=== PATIENT | male | born 1960 | race Caucasian/White ===

== ENCOUNTER 2023-11-28 19:11 | Inpatient (IN) | payer MEDICAID ==
[~2023-11-28] VITALS: Ht 162.6 cm; Wt 72.2 kg
[2023-11-28 19:50] LABS: BASOPHILS % (AUTO) 0.4 % (0-1); EOSINOPHILS # (AUTO) 0.1 X10'3 (0-0.9); EOSINOPHILS % (AUTO) 1.1 % (0-6); HEMATOCRIT 31.5 % (42.0-52.0); HEMOGLOBIN 9.8 g/dl (14.0-17.9); LYMPHOCYTES # (AUTO) 0.9 X10'3 (1.1-4.8); LYMPHOCYTES % (AUTO) 10.5 % (21-51); MEAN CORPUSCULAR HEMOGLOBIN 26.5 PG (27.0-31.0); MEAN CORPUSCULAR HGB CONC 31.3 g/dL (33.0-36.5); MEAN CORPUSCULAR VOLUME 84.9 FL (78-98); MEAN PLATELET VOLUME 8.1 FL (7.4-10.4); MONOCYTES # (AUTO) 0.6 X10'3 (0-0.9); MONOCYTES % (AUTO) 6.6 % (2-12); NEUTROPHILS # (AUTO) 6.8 X10'3 (1.8-7.7); NEUTROPHILS % (AUTO) 81.4 % (42-75); PLATELET COUNT 176 X10'3 (140-440); RED BLOOD COUNT 3.71 X10'6 (4.70-6.10); RED CELL DISTRIBUTION WIDTH 17.9 % (11.5-14.5); WHITE BLOOD COUNT 8.4 X10'3 (4.5-11.0)
[2023-11-28 20:05] LABS: ALANINE AMINOTRANSFERASE 44 U/L (12-78); ALBUMIN 2.8 G/DL (3.4-5.0); ALBUMIN/GLOBULIN RATIO 0.9 (1.1-1.5); ALKALINE PHOSPHATASE 43 IU/L (46-116); ANION GAP 6 (8-16); ASPARTATE AMINO TRANSFERASE 53 U/L (10-37); BILIRUBIN,TOTAL 0.8 MG/DL (0.1-1.0); BLOOD UREA NITROGEN 33 MG/DL (7-18); BUN/CREATININE RATIO 38.4 (10.0-20.0); CALCIUM 8.1 MG/DL (8.5-10.1); CHLORIDE 104 MMOL/L (99-107); CREATININE 0.86 MG/DL (0.60-1.10); GLUCOSE 91 MG/DL (70-104); POTASSIUM 3.8 MMOL/L (3.5-5.1); SODIUM 145 MMOL/L (135-145); TOTAL CARBON DIOXIDE 35.2 MMOL/L (24-32); eCRCL 74 ML/MIN; eGFR 90 ML/MIN
[2023-11-28 20:13] LABS: PRO BRAIN NATRIURETIC PEPTIDE 954 PG/ML (0-125)
[2023-11-28] MEDS: albuterol 2.5 MG/3 ML nebule NEB ONE (20:15)
[2023-11-28 20:19] VITALS: PULSE 60; PULSE 64; RESP 14; RESP 15; O2SAT 88; O2SAT 99
[2023-11-28] MEDS: furosemide 10 MG/1 ML 10ml inj IV ONE (20:34)
[2023-11-28] MEDS ORDERED: ondansetron/PF 4mg/2ml inj IV PRN (20:50)
[2023-11-28] MEDS ORDERED: potassium Cl 20 mEq SR tablet PO PRN ×2 (20:50)
[2023-11-28] MEDS ORDERED: magnesium hydroxide 30ml (MOM) UD suspension PO PRN (20:50)
[2023-11-28] MEDS: PERFLUTREN PROTEIN-A MICROSPHR (Optison) 0.22 MG/ML 3ML VIAL IV ONE (20:50)
[2023-11-28] MEDS ORDERED: mag hydrox/Alum hydrox/simeth 30ml oral suspension PO PRN (20:50)
[2023-11-28] MEDS ORDERED: morphine 2 MG/ML inj. syringe IV PRN ×2 (20:50)
[2023-11-28] MEDS ORDERED: magnesium Cl slow-release 64mg tablet PO PRN (20:50)
[2023-11-28] MEDS ORDERED: acetaminophen 325mg tablet PO PRN (20:50)
[2023-11-28] MEDS ORDERED: magnesium sulf-water 2g/50mL 50 ML IV PRN (20:50)
[2023-11-28] MEDS ORDERED: potassium Cl 40MEQ/1/2NS 520ml 520 ML IV PRN (20:50)
[2023-11-28] MEDS ORDERED: magnesium sulf-water 4G/100mL 100 ML IV PRN (20:50)
[2023-11-28 20:56] LABS: BILIRUBIN,URINE SMALL (Neg); CLARITY,URINE CLEAR (Clear); COLOR,URINE AMBER (Yellow); GLUCOSE, URINE 250 mg/dl (Neg); KETONES,URINE 15 mg/dl (Neg); LEUKOCYTE ESTERASE ,URINE NEGATIVE (Neg); NITRITES, URINE NEGATIVE (Neg); OCCULT BLOOD,URINE NEGATIVE (Neg); PH,URINE 6.5 (4.8-8.0); PROTEIN,URINE NEGATIVE (Neg)
[2023-11-28] MEDS: heparin 10,000 units/1 ML INJ IV ONE (20:58)
[2023-11-28] MEDS: aspirin 325mg tablet, delayed-release (Ecotrin) PO ONE (20:58)
[2023-11-28 21:03] LABS: UA COLLECTION TYPE URINAL
[2023-11-28 21:06] LABS: URINE AMPHETAMINE SCREEN NEGATIVE (Neg); URINE BARBITUATE SCREEN NEGATIVE (Neg); URINE BENZODIAZEPINES SCREEN POSITIVE (Neg); URINE CANNABINOID SCREEN POSITIVE (Neg); URINE COCAINE SCREEN NEGATIVE (Neg); URINE METHADONE SCREEN NEGATIVE (Neg); URINE OPIATE SCREEN NEGATIVE (Neg); URINE PHENCYCLIDINE SCREEN NEGATIVE (Neg)
[2023-11-28] MEDS: methylPREDNISolone sod succ 125mg/2ml vial IV ONE (21:15)
[2023-11-28] MEDS: CefTRIAXone/D5W-Rocephin 1gm 50 ML IV ONE (21:16)
[2023-11-28] MEDS ORDERED: heparin 10,000 units/1 ML INJ IV ONE (21:25)
[2023-11-28 21:57] LABS: APTT 23 SECONDS (22-32); INR 1.1 INR; PROTHROMBIN TIME 11.2 SECONDS (9.0-12.0)
[2023-11-28] MEDS: aspirin 325mg tablet PO ONE (22:28)
[2023-11-28] MEDS ORDERED: LORazepam 1 MG tablet PO PRN (22:45)
[2023-11-28] MEDS ORDERED: LORazepam 2 mg/ml vial IV PRN (22:45)
[2023-11-28] MEDS ORDERED: haloperidol 5mg tablet PO PRN (22:45)
[2023-11-28] MEDS ORDERED: haloperidol lactate 5mg/ml inj IM PRN (22:45)
[2023-11-28] MEDS: heparin 25,000 UNIT/250ml bag 250 ML IV PRN (22:46)
[2023-11-28] MEDS: clopidogrel 300mg tablet PO ONE (22:49)
[2023-11-28] MEDS: normal saline 1000ml 1,000 ML IV SCH (22:50)
[2023-11-28] MEDS: COMMUNICATION ORDER 1 EA MISC MC ONE (22:58)
[2023-11-29] VITALS (10 sets, daily range): BP systolic 94–118; BP diastolic 48–58; PULSE 46–65; RESP 12–20; TEMP 97.5–98.7; O2SAT 18–96
[2023-11-29] MEDS: MESSAGE TO NURSING IV ONE ×4 (00:03→20:39)
[2023-11-29] MEDS ORDERED: NO HOME MEDS (00:58)
[2023-11-29 06:32] LABS: APTT 43 SECONDS (22-32); INR 1.1 INR; PROTHROMBIN TIME 11.1 SECONDS (9.0-12.0)
[2023-11-29] MEDS: K and/or MAG REPLACEMENT MC SCH (08:00)
[2023-11-29] MEDS: heparin 10,000 units/1 ML INJ IV PRN (08:14)
[2023-11-29] MEDS: aspirin 81mg, enteric-coated 1 TAB TABLET.DR PO SCH (08:18)
[2023-11-29] MEDS: docusate sod 100mg capsule PO SCH (08:18)
[2023-11-29] MEDS: clopidogrel 75mg tablet PO SCH (08:19)
[2023-11-29] MEDS ORDERED: FLU VACC TS2024-25(6MOS UP)/PF 45 MCG/0.5 ML SYRINGE IMVAC ONE (16:45)
[2023-11-29] MEDS: oxyCODONE/APAP 5-325mg tablet PO PRN (16:48)
[2023-11-29] MEDS: ipratropium/albuterol 3ml nebule NEB PRN (19:46)
[2023-11-30] VITALS (12 sets, daily range): BP systolic 98–111; BP diastolic 36–63; PULSE 18–58; RESP 14–22; TEMP 97.3–98.1; O2SAT 92–98
[2023-11-30 03:03] LABS: BASOPHILS % (AUTO) 0.3 % (0-1); EOSINOPHILS % (AUTO) 0.3 % (0-6); HEMATOCRIT 30.2 % (42.0-52.0); HEMOGLOBIN 9.3 g/dl (14.0-17.9); LYMPHOCYTES % (AUTO) 13.2 % (21-51); MEAN CORPUSCULAR HEMOGLOBIN 26.7 PG (27.0-31.0); MEAN CORPUSCULAR HGB CONC 30.9 g/dL (33.0-36.5); MEAN CORPUSCULAR VOLUME 86.3 FL (78-98); MEAN PLATELET VOLUME 8.9 FL (7.4-10.4); MONOCYTES # (AUTO) 0.6 X10'3 (0-0.9); MONOCYTES % (AUTO) 7.9 % (2-12); NEUTROPHILS # (AUTO) 5.7 X10'3 (1.8-7.7); NEUTROPHILS % (AUTO) 78.3 % (42-75); PLATELET COUNT 148 X10'3 (140-440); RED BLOOD COUNT 3.49 X10'6 (4.70-6.10); RED CELL DISTRIBUTION WIDTH 17.7 % (11.5-14.5); WHITE BLOOD COUNT 7.3 X10'3 (4.5-11.0)
[2023-11-30 03:14] LABS: INR 1.1 INR; PROTHROMBIN TIME 11.2 SECONDS (9.0-12.0)
[2023-11-30 03:16] LABS: ALBUMIN 2.7 G/DL (3.4-5.0); AMYLASE 62 U/L (25-115); ANION GAP 1 (8-16); BLOOD UREA NITROGEN 30 MG/DL (7-18); CALCIUM 8.2 MG/DL (8.5-10.1); CHLORIDE 102 MMOL/L (99-107); CREATININE 0.79 MG/DL (0.60-1.10); GLUCOSE 110 MG/DL (70-104); LIPASE 15 U/L (16-77); PHOSPHORUS 2.4 MG/DL (2.3-4.5); POTASSIUM 4.1 MMOL/L (3.5-5.1); SODIUM 139 MMOL/L (135-145); TOTAL CARBON DIOXIDE 35.6 MMOL/L (24-32); eCRCL 80 ML/MIN; eGFR > 90 ML/MIN
[2023-11-30] MEDS: MESSAGE TO NURSING IV ONE ×4 (03:30→23:44)
[2023-12-01] VITALS (12 sets, daily range): BP systolic 108–136; BP diastolic 48–62; PULSE 48–60; RESP 16–21; TEMP 97.5–98.4; O2SAT 93–98
[2023-12-01 06:54] LABS: BASOPHILS % (AUTO) 0.1 % (0-1); EOSINOPHILS # (AUTO) 0.1 X10'3 (0-0.9); EOSINOPHILS % (AUTO) 1.3 % (0-6); HEMATOCRIT 33.6 % (42.0-52.0); HEMOGLOBIN 10.1 g/dl (14.0-17.9); LYMPHOCYTES # (AUTO) 1.2 X10'3 (1.1-4.8); LYMPHOCYTES % (AUTO) 17.9 % (21-51); MEAN CORPUSCULAR HEMOGLOBIN 26.4 PG (27.0-31.0); MEAN CORPUSCULAR HGB CONC 30.1 g/dL (33.0-36.5); MEAN CORPUSCULAR VOLUME 87.8 FL (78-98); MEAN PLATELET VOLUME 9.1 FL (7.4-10.4); MONOCYTES # (AUTO) 0.7 X10'3 (0-0.9); MONOCYTES % (AUTO) 10.2 % (2-12); NEUTROPHILS # (AUTO) 4.6 X10'3 (1.8-7.7); NEUTROPHILS % (AUTO) 70.5 % (42-75); PLATELET COUNT 159 X10'3 (140-440); RED BLOOD COUNT 3.83 X10'6 (4.70-6.10); RED CELL DISTRIBUTION WIDTH 18.1 % (11.5-14.5); WHITE BLOOD COUNT 6.5 X10'3 (4.5-11.0)
[2023-12-01 07:05] LABS: INR 1.1 INR; PROTHROMBIN TIME 11.2 SECONDS (9.0-12.0)
[2023-12-01 07:30] LABS: ALBUMIN 2.8 G/DL (3.4-5.0); AMYLASE 65 U/L (25-115); ANION GAP 4 (8-16); BLOOD UREA NITROGEN 17 MG/DL (7-18); BUN/CREATININE RATIO 22.1 (10.0-20.0); CALCIUM 7.8 MG/DL (8.5-10.1); CHLORIDE 104 MMOL/L (99-107); CREATININE 0.77 MG/DL (0.60-1.10); GLUCOSE 81 MG/DL (70-104); LIPASE 18 U/L (16-77); PHOSPHORUS 2.2 MG/DL (2.3-4.5); POTASSIUM 4.5 MMOL/L (3.5-5.1); SODIUM 140 MMOL/L (135-145); TOTAL CARBON DIOXIDE 31.7 MMOL/L (24-32); eCRCL 82 ML/MIN; eGFR > 90 ML/MIN
[2023-12-01 07:45] LABS: ANISOCYTOSIS 2+; PLATELET ESTIMATE NORMAL
[2023-12-01 07:46] LABS: ELLIPTOCYTES FEW; HYPOCHROMASIA 1+
[2023-12-01] MEDS: MESSAGE TO NURSING IV ONE (08:30)
[2023-12-01 13:33] LABS: D-DIMER 0.25 MG/L FEU (0-0.50)
[2023-12-01] MEDS ORDERED: ASPI-1265 PO (14:50)
[2023-12-01] MEDS ORDERED: ATOR40TA72 PO (14:50)
[2023-12-01] MEDS ORDERED: FURO20TA4 PO (15:32)
[2023-12-01] MEDS ORDERED: FLUC200T12 PO (15:32)
[2023-12-01] MEDS ORDERED: ALBU8HFA INH (15:32)
[2023-12-01] MEDS ORDERED: EMPA10TA PO (15:32)
[2023-12-01] MEDS ORDERED: NICO-631 TD (15:32)
[2023-12-01] MEDS ORDERED: SPIR25TA5 PO (15:32)
[2023-12-01] MEDS ORDERED: LOSA50TA64 PO (15:32)
[2023-12-01] MEDS ORDERED: CLOP75TA34 PO (15:35)
[2023-12-02 02:00] VITALS: BP 132/58; PULSE 58; RESP 22; TEMP 97.9; O2SAT 94
[2023-12-02 06:42] LABS: PROTHROMBIN TIME 10.9 SECONDS (9.0-12.0)
[2023-12-02 06:49] LABS: BASOPHILS % (AUTO) 0.5 % (0-1); EOSINOPHILS # (AUTO) 0.1 X10'3 (0-0.9); EOSINOPHILS % (AUTO) 1.4 % (0-6); HEMATOCRIT 33.9 % (42.0-52.0); HEMOGLOBIN 10.5 g/dl (14.0-17.9); LYMPHOCYTES # (AUTO) 1.1 X10'3 (1.1-4.8); LYMPHOCYTES % (AUTO) 15.5 % (21-51); MEAN CORPUSCULAR HEMOGLOBIN 26.7 PG (27.0-31.0); MEAN CORPUSCULAR HGB CONC 31.1 g/dL (33.0-36.5); MEAN CORPUSCULAR VOLUME 86.1 FL (78-98); MEAN PLATELET VOLUME 8.9 FL (7.4-10.4); MONOCYTES # (AUTO) 0.7 X10'3 (0-0.9); MONOCYTES % (AUTO) 10.5 % (2-12); NEUTROPHILS % (AUTO) 72.1 % (42-75); PLATELET COUNT 176 X10'3 (140-440); RED BLOOD COUNT 3.94 X10'6 (4.70-6.10); RED CELL DISTRIBUTION WIDTH 18.3 % (11.5-14.5)
[2023-12-02 07:00] LABS: ALBUMIN 2.8 G/DL (3.4-5.0); AMYLASE 63 U/L (25-115); ANION GAP 5 (8-16); BLOOD UREA NITROGEN 10 MG/DL (7-18); BUN/CREATININE RATIO 15.6 (10.0-20.0); CALCIUM 8.3 MG/DL (8.5-10.1); CHLORIDE 107 MMOL/L (99-107); CREATININE 0.64 MG/DL (0.60-1.10); GLUCOSE 88 MG/DL (70-104); LIPASE 18 U/L (16-77); MAGNESIUM 1.9 MG/DL (1.5-2.4); PHOSPHORUS 2.8 MG/DL (2.3-4.5); SODIUM 140 MMOL/L (135-145); TOTAL CARBON DIOXIDE 28.3 MMOL/L (24-32); eCRCL 99 ML/MIN; eGFR > 90 ML/MIN
[2023-12-02 08:00] VITALS: RESP 18; O2SAT 96
[2023-12-02] MEDS ORDERED: ASPI-1265 PO (13:33)
[2023-12-03] MEDS ORDERED: ATOR40TA PO (16:07)
[2023-12-03] MEDS ORDERED: ASPI81TA52 PO (16:07)
[2023-12-03] MEDS ORDERED: LOSA-415 PO (16:13)
[2023-12-03] MEDS ORDERED: FLUC100T PO (16:13)
[2023-12-03] MEDS ORDERED: METO-539 PO (16:13)
[2023-12-03] MEDS ORDERED: ALBU8HFA INH (16:13)
[2023-12-03] MEDS ORDERED: FURO-150 PO (16:13)
[2023-12-03] MEDS ORDERED: EMPA10TA PO (16:13)
[2023-12-03] MEDS ORDERED: CLOP-32 PO (16:13)
== END 2023-12-02 14:10 | disposition home or self-care (01) | DRG 206 ==
LOC: ER 19:11 → ED HOLD 21:23 → PCU 3S 11-29 07:11
PROVIDERS: ADMIT Surgery Surgical Critical Care; ATTEND Family Medicine
DX: T82.867A Thrombosis due to cardiac prosthetic devices, implants and grafts, initial encounter (principal); J96.00 Acute respiratory failure, unspecified whether with hypoxia or hypercapnia; I21.4 Non-ST elevation (NSTEMI) myocardial infarction; I50.33 Acute on chronic diastolic (congestive) heart failure; J44.1 Chronic obstructive pulmonary disease with (acute) exacerbation; I25.10 Atherosclerotic heart disease of native coronary artery without angina pectoris; F10.20 Alcohol dependence, uncomplicated; Y83.8 Other surgical procedures as the cause of abnormal reaction of the patient, or of later complication, without mention of misadventure at the time of the procedure; Z95.5 Presence of coronary angioplasty implant and graft; Z59.00 Homelessness unspecified; Z91.013 Allergy to seafood; Z90.49 Acquired absence of other specified parts of digestive tract; Z91.148 Patient's other noncompliance with medication regimen for other reason; Y92.89 Other specified places as the place of occurrence of the external cause
CPT/HCPCS: 36415; 71045; 80048; 80053; 80305; 81003; 82150; 83690; 83735; 83880; 84100; 84484; 85008; 85025; 85379; 85610; 85730; 87081; 90686; 93005; 93306; 94640; 94760; 96365; 96375; 97116; 97161; 99285; A6212; A6213; A6223; A6258; A6446; A6449; G0378; J0696; J1644; J1940; J2919; J7030

== ENCOUNTER 2023-12-03 15:38 | Inpatient (IN) | payer MEDICAID ==
[~2023-12-03] VITALS: Ht 162.6 cm; Wt 66.4 kg
[~2023-12-03 15:38] MED LIST: ALBU8HFA INH; ASPI-1265 PO; ATOR40TA72 PO; CLOP75TA34 PO; EMPA10TA PO; FLUC200T12 PO; FURO20TA4 PO; LOSA50TA64 PO; NICO-631 TD; NO HOME MEDS; SPIR25TA5 PO
[2023-12-03] MEDS ORDERED: mag hydrox/Alum hydrox/simeth 30ml oral suspension PO PRN (16:00)
[2023-12-03] MEDS ORDERED: loperamide 2mg capsule PO PRN (16:00)
[2023-12-03] MEDS ORDERED: acetaminophen 325mg tablet PO PRN ×2 (16:00)
[2023-12-03] MEDS ORDERED: magnesium hydroxide 30ml (MOM) UD suspension PO PRN (16:00)
[2023-12-03] MEDS ORDERED: ASPI81TA52 PO (16:07)
[2023-12-03] MEDS ORDERED: ATOR40TA PO (16:07)
[2023-12-03] MEDS ORDERED: EMPA10TA PO (16:13)
[2023-12-03] MEDS ORDERED: LOSA-415 PO (16:13)
[2023-12-03] MEDS ORDERED: CLOP-32 PO (16:13)
[2023-12-03] MEDS ORDERED: FLUC100T PO (16:13)
[2023-12-03] MEDS ORDERED: METO-539 PO (16:13)
[2023-12-03] MEDS ORDERED: ALBU8HFA INH (16:13)
[2023-12-03] MEDS ORDERED: FURO-150 PO (16:13)
[2023-12-03 16:34] VITALS: BP 118/55; PULSE 63; RESP 22; TEMP 98.2; O2SAT 95
[2023-12-03 17:44] VITALS: RESP 16; O2SAT 94
[2023-12-03 19:00] VITALS: RESP 14; O2SAT 92
[2023-12-03 20:00] VITALS: BP 114/56; PULSE 56; RESP 20; TEMP 98.2; O2SAT 96
[2023-12-03 20:10] VITALS: PULSE 54; RESP 16; O2SAT 95
[2023-12-03 20:15] VITALS: PULSE 58; RESP 16
[2023-12-03] MEDS: albuterol 2.5 MG/3 ML nebule NEB PRN (20:26)
[2023-12-03] MEDS: temazepam 15mg capsule PO ONE (23:28)
[2023-12-04] VITALS (8 sets, daily range): BP systolic 90–122; BP diastolic 43–58; PULSE 54–63; RESP 15–18; TEMP 97.6–98.2; O2SAT 94–99
[2023-12-04] MEDS: temazepam 15mg capsule PO ONE (03:56)
[2023-12-04] MEDS ORDERED: fluconazole 100mg tablet PO SCH (08:00)
[2023-12-04] MEDS: aspirin 81mg tab.chew PO SCH (08:33)
[2023-12-04] MEDS: atorvastatin 20mg tablet PO SCH (08:35)
[2023-12-04] MEDS: losartan 50mg tablet PO SCH (08:35)
[2023-12-04] MEDS: metoprolol succinate 25mg (24-HOUR) SR. Tablet PO SCH (08:35)
[2023-12-04] MEDS: clopidogrel 75mg tablet PO SCH (08:35)
[2023-12-04] MEDS: furosemide 20MG tablet PO SCH (08:35)
[2023-12-04] MEDS: nicotine 21mg patch - 24 hr TD SCH (08:36)
[2023-12-04 09:08] LABS: CHOL/HDL RATIO 3.3 (0.00-4.99); CHOLESTEROL 195 MG/DL (0-200); HDL CHOLESTEROL 59 MG/DL (35-60); LDL CHOLESTEROL 113 MG/DL (50-100); TRIGLYCERIDES 61 MG/DL (20-135)
[2023-12-04] MEDS: EMPAGLIFLOZIN 10 MG TABLET PO SCH (09:34)
[2023-12-04] MEDS: hydrOXYzine 25 MG tablet PO PRN (16:31)
[2023-12-04] MEDS: Melatonin 3mg tablet PO SCH (20:16)
[2023-12-04] MEDS: NICOTINE POLACRILEX 2 MG LOZENGE BC PRN (20:19)
[2023-12-05] VITALS (7 sets, daily range): BP systolic 91–104; BP diastolic 48–54; PULSE 56–76; RESP 14–17; TEMP 96.7–97.4; O2SAT 94–96
[2023-12-05] MEDS: PALIPERIDONE 3 MG TAB.ER.24 PO SCH (08:25)
[2023-12-05] MEDS ORDERED: QUEtiapine 25mg tablet PO PRN (21:05)
[2023-12-05] MEDS: QUEtiapine 25mg tablet PO SCH (21:13)
[2023-12-06] VITALS (7 sets, daily range): BP systolic 102–103; BP diastolic 50–55; PULSE 70–88; RESP 16–18; TEMP 97.8–98; O2SAT 88–98
[2023-12-06] MEDS ORDERED: nitroGLYCERIN 0.4mg SUBLingual tab SL PRN (05:00)
[2023-12-06 05:38] LABS: ALANINE AMINOTRANSFERASE 40 U/L (12-78); ALBUMIN 3.1 G/DL (3.4-5.0); ALBUMIN/GLOBULIN RATIO 0.7 (1.1-1.5); ALKALINE PHOSPHATASE 53 IU/L (46-116); ANION GAP 7 (8-16); ASPARTATE AMINO TRANSFERASE 26 U/L (10-37); BILIRUBIN,TOTAL 0.5 MG/DL (0.1-1.0); BLOOD UREA NITROGEN 27 MG/DL (7-18); BUN/CREATININE RATIO 34.2 (10.0-20.0); CALCIUM 8.6 MG/DL (8.5-10.1); CHLORIDE 101 MMOL/L (99-107); CREATININE 0.79 MG/DL (0.60-1.10); GLUCOSE 92 MG/DL (70-104); POTASSIUM 4.5 MMOL/L (3.5-5.1); SODIUM 135 MMOL/L (135-145); TOTAL CARBON DIOXIDE 26.8 MMOL/L (24-32); TOTAL PROTEIN 7.3 G/DL (6.4-8.2); eCRCL 80 ML/MIN; eGFR > 90 ML/MIN
[2023-12-06 07:53] LABS: BASOPHILS % (AUTO) 0.3 % (0-1); EOSINOPHILS # (AUTO) 0.2 X10'3 (0-0.9); EOSINOPHILS % (AUTO) 1.7 % (0-6); HEMATOCRIT 37.5 % (42.0-52.0); HEMOGLOBIN 11.7 g/dl (14.0-17.9); LYMPHOCYTES % (AUTO) 11.3 % (21-51); MEAN CORPUSCULAR HEMOGLOBIN 26.6 PG (27.0-31.0); MEAN CORPUSCULAR HGB CONC 31.1 g/dL (33.0-36.5); MEAN CORPUSCULAR VOLUME 85.5 FL (78-98); MEAN PLATELET VOLUME 8.3 FL (7.4-10.4); MONOCYTES # (AUTO) 0.7 X10'3 (0-0.9); MONOCYTES % (AUTO) 7.5 % (2-12); NEUTROPHILS % (AUTO) 79.2 % (42-75); PLATELET COUNT 206 X10'3 (140-440); RED BLOOD COUNT 4.38 X10'6 (4.70-6.10); RED CELL DISTRIBUTION WIDTH 18.8 % (11.5-14.5); WHITE BLOOD COUNT 8.8 X10'3 (4.5-11.0)
[2023-12-06 08:08] LABS: ANISOCYTOSIS 2+; ELLIPTOCYTES FEW; PLATELET ESTIMATE NORMAL
[2023-12-06] MEDS: vitamin B comp w/Vit. C tab 1 TAB TABLET PO SCH (08:23)
[2023-12-06] MEDS: folic acid 1mg tablet PO SCH (08:24)
[2023-12-06] MEDS: naltrexone 50mg tablet PO SCH (08:24)
[2023-12-06 12:55] LABS: PRO BRAIN NATRIURETIC PEPTIDE 436 PG/ML (0-125)
[2023-12-06] MEDS ORDERED: NALT50TA5 PO (14:22)
[2023-12-06] MEDS ORDERED: NICO-687 TD (14:22)
[2023-12-06] MEDS ORDERED: MELA3TAB39 PO (14:22)
[2023-12-06] MEDS ORDERED: PALI3TAB5 PO (14:22)
[2023-12-06] MEDS ORDERED: NICO-907 BC (14:22)
[2023-12-06] MEDS ORDERED: NITR0.4T51 SL (14:22)
[2023-12-06] MEDS ORDERED: HYDR-3686 PO (14:22)
[2023-12-06] MEDS ORDERED: FOLI1TAB27 PO (14:22)
[2023-12-06] MEDS ORDERED: VITA1CAP16 PO (14:22)
[2023-12-06] MEDS ORDERED: QUET25TA36 PO (14:22)
== END 2023-12-06 16:09 | disposition short-term general hospital (02) | DRG 750 ==
LOC: ADULT MH 15:40
PROVIDERS: ADMIT Psychiatry & Neurology Psychiatry; ATTEND Psychiatry & Neurology Psychiatry
PROC: GZHZZZZ Group Psychotherapy (ICD-10-PCS; principal; 2023-12-04)
PROC: GZ51ZZZ Individual Psychotherapy, Behavioral (ICD-10-PCS; 2023-12-04)
DX: F25.1 Schizoaffective disorder, depressive type (principal); R45.851 Suicidal ideations; F10.10 Alcohol abuse, uncomplicated; F41.9 Anxiety disorder, unspecified; R07.89 Other chest pain; I25.10 Atherosclerotic heart disease of native coronary artery without angina pectoris; J44.9 Chronic obstructive pulmonary disease, unspecified; Z95.5 Presence of coronary angioplasty implant and graft; Z91.013 Allergy to seafood; Z90.49 Acquired absence of other specified parts of digestive tract; Z59.00 Homelessness unspecified
CPT/HCPCS: 36415; 71045; 80053; 80061; 83036; 83880; 84484; 85008; 85025; 87081; 93005; 94640; 94760; Q0177

== ENCOUNTER 2023-12-06 14:13 | Inpatient (IN) | payer MEDICAID ==
[~2023-12-06] VITALS: Ht 162.6 cm; Wt 66.4 kg
[~2023-12-06 14:13] MED LIST changes: +ASPI81TA52 PO; +ATOR40TA PO; +CLOP-32 PO; +FLUC100T PO; +FURO-150 PO; +LOSA-415 PO; +METO-539 PO; -NICO-631 TD; -NO HOME MEDS
[2023-12-06] MEDS ORDERED: NALT50TA5 PO (14:22)
[2023-12-06] MEDS ORDERED: QUET25TA36 PO (14:22)
[2023-12-06] MEDS ORDERED: VITA1CAP16 PO (14:22)
[2023-12-06] MEDS ORDERED: NICO-907 BC (14:22)
[2023-12-06] MEDS ORDERED: PALI3TAB5 PO (14:22)
[2023-12-06] MEDS ORDERED: HYDR-3686 PO (14:22)
[2023-12-06] MEDS ORDERED: FOLI1TAB27 PO (14:22)
[2023-12-06] MEDS ORDERED: NICO-687 TD (14:22)
[2023-12-06] MEDS ORDERED: NITR0.4T51 SL (14:22)
[2023-12-06] MEDS ORDERED: MELA3TAB39 PO (14:22)
[2023-12-06] MEDS ORDERED: magnesium Cl slow-release 64mg tablet PO PRN (14:45)
[2023-12-06] MEDS ORDERED: acetaminophen 325mg tablet PO PRN (14:45)
[2023-12-06] MEDS ORDERED: mag hydrox/Alum hydrox/simeth 30ml oral suspension PO PRN (14:45)
[2023-12-06] MEDS ORDERED: potassium Cl 20 mEq SR tablet PO PRN ×2 (14:45)
[2023-12-06] MEDS ORDERED: ondansetron/PF 4mg/2ml inj IV PRN (14:45)
[2023-12-06] MEDS ORDERED: magnesium sulf-water 4G/100mL 100 ML IV PRN (14:45)
[2023-12-06] MEDS ORDERED: potassium Cl 40MEQ/1/2NS 520ml 520 ML IV PRN (14:45)
[2023-12-06] MEDS ORDERED: magnesium hydroxide 30ml (MOM) UD suspension PO PRN (14:45)
[2023-12-06] MEDS ORDERED: magnesium sulf-water 2g/50mL 50 ML IV PRN (14:45)
[2023-12-06] MEDS: HEPARIN DRIP-CARDIAC**PHARMACIST-TO-DOSE IV ONE (14:55)
[2023-12-06] MEDS: MESSAGE TO NURSING IV ONE (15:25)
[2023-12-06 16:00] VITALS: BP 122/56; PULSE 72; RESP 17; TEMP 97.7; O2SAT 97
[2023-12-06 17:06] LABS: BASOPHILS # (AUTO) 0.1 X10'3 (0-0.2); BASOPHILS % (AUTO) 1.3 % (0-1); EOSINOPHILS # (AUTO) 0.1 X10'3 (0-0.9); EOSINOPHILS % (AUTO) 1.2 % (0-6); HEMOGLOBIN 12.3 g/dl (14.0-17.9); LYMPHOCYTES # (AUTO) 0.8 X10'3 (1.1-4.8); LYMPHOCYTES % (AUTO) 8.5 % (21-51); MEAN CORPUSCULAR HEMOGLOBIN 26.6 PG (27.0-31.0); MEAN CORPUSCULAR HGB CONC 31.5 g/dL (33.0-36.5); MEAN CORPUSCULAR VOLUME 84.7 FL (78-98); MEAN PLATELET VOLUME 8.6 FL (7.4-10.4); MONOCYTES # (AUTO) 0.4 X10'3 (0-0.9); MONOCYTES % (AUTO) 4.8 % (2-12); NEUTROPHILS # (AUTO) 7.5 X10'3 (1.8-7.7); NEUTROPHILS % (AUTO) 84.2 % (42-75); PLATELET COUNT 209 X10'3 (140-440); RED BLOOD COUNT 4.61 X10'6 (4.70-6.10); WHITE BLOOD COUNT 8.9 X10'3 (4.5-11.0)
[2023-12-06 17:11] LABS: MAGNESIUM 1.9 MG/DL (1.5-2.4); POTASSIUM 3.7 MMOL/L (3.5-5.1)
[2023-12-06 17:13] LABS: APTT 23 SECONDS (22-32); PROTHROMBIN TIME 10.9 SECONDS (9.0-12.0)
[2023-12-06] MEDS: heparin 25,000 UNIT/250ml bag 250 ML IV PRN (19:40)
[2023-12-06] MEDS: heparin 10,000 units/1 ML INJ IV ONE (19:42)
[2023-12-06] MEDS: docusate sod 100mg capsule PO SCH (19:45)
[2023-12-06] MEDS: normal saline 1000ml 1,000 ML IV SCH (19:48)
[2023-12-06 20:00] VITALS: RESP 17; O2SAT 97
[2023-12-06] MEDS: K and/or MAG REPLACEMENT MC SCH (20:00)
[2023-12-06] MEDS ORDERED: morphine 4 MG/ML inj SYRINge IV PRN (20:45)
[2023-12-06] MEDS: morphine 2 MG/ML inj. syringe IV PRN (20:57)
[2023-12-06 22:00] VITALS: BP 113/55; PULSE 83; RESP 16; TEMP 97.3; O2SAT 94
[2023-12-07] VITALS (14 sets, daily range): BP systolic 95–107; BP diastolic 41–54; PULSE 63–85; RESP 12–19; TEMP 97.4–97.8; O2SAT 90–99
[2023-12-07] MEDS ORDERED: MESSAGE TO NURSING IV ONE (03:15)
[2023-12-07] MEDS: heparin 10,000 units/1 ML INJ IV PRN (03:24)
[2023-12-07] MEDS: MESSAGE TO NURSING IV ONE (03:32)
[2023-12-07] MEDS: albuterol 2.5 MG/3 ML nebule NEB PRN ×2 (05:13→15:22)
[2023-12-07] MEDS ORDERED: NICOTINE POLACRILEX 2 MG LOZENGE BC PRN (05:30)
[2023-12-07] MEDS ORDERED: nitroGLYCERIN 0.4mg SUBLingual tab SL PRN (05:30)
[2023-12-07] MEDS ORDERED: hydrOXYzine 25 MG tablet PO PRN (05:30)
[2023-12-07] MEDS: thiamine 100mg tablet PO SCH (06:05)
[2023-12-07] MEDS: folic acid 1mg tablet PO SCH (06:05)
[2023-12-07 07:51] LABS: BASOPHILS % (AUTO) 0.7 % (0-1); EOSINOPHILS # (AUTO) 0.1 X10'3 (0-0.9); EOSINOPHILS % (AUTO) 1.5 % (0-6); HEMATOCRIT 39.7 % (42.0-52.0); HEMOGLOBIN 12.6 g/dl (14.0-17.9); LYMPHOCYTES # (AUTO) 1.1 X10'3 (1.1-4.8); LYMPHOCYTES % (AUTO) 18.2 % (21-51); MEAN CORPUSCULAR HEMOGLOBIN 26.9 PG (27.0-31.0); MEAN CORPUSCULAR HGB CONC 31.7 g/dL (33.0-36.5); MEAN CORPUSCULAR VOLUME 84.8 FL (78-98); MEAN PLATELET VOLUME 8.7 FL (7.4-10.4); MONOCYTES # (AUTO) 0.6 X10'3 (0-0.9); MONOCYTES % (AUTO) 9.2 % (2-12); NEUTROPHILS # (AUTO) 4.2 X10'3 (1.8-7.7); NEUTROPHILS % (AUTO) 70.4 % (42-75); PLATELET COUNT 191 X10'3 (140-440); RED BLOOD COUNT 4.68 X10'6 (4.70-6.10); RED CELL DISTRIBUTION WIDTH 19.3 % (11.5-14.5)
[2023-12-07 07:59] LABS: CHOL/HDL RATIO 2.9 (0.00-4.99); CHOLESTEROL 162 MG/DL (0-200); HDL CHOLESTEROL 55 MG/DL (35-60); LDL CHOLESTEROL 90 MG/DL (50-100); MAGNESIUM 2.2 MG/DL (1.5-2.4); TRIGLYCERIDES 51 MG/DL (20-135)
[2023-12-07] MEDS ORDERED: metoprolol succinate 25mg (24-HOUR) SR. Tablet PO SCH (08:00)
[2023-12-07] MEDS ORDERED: atorvastatin 20mg tablet PO SCH (08:00)
[2023-12-07] MEDS ORDERED: clopidogrel 75mg tablet PO SCH (08:00)
[2023-12-07] MEDS ORDERED: aspirin 81mg tab.chew PO SCH (08:30)
[2023-12-07] MEDS: aspirin 81mg tab.chew PO SCH (08:54)
[2023-12-07] MEDS: EMPAGLIFLOZIN 10 MG TABLET PO SCH (08:57)
[2023-12-07] MEDS: clopidogrel 75mg tablet PO SCH (08:57)
[2023-12-07] MEDS: losartan 50mg tablet PO SCH (08:57)
[2023-12-07] MEDS: atorvastatin 10mg tablet PO SCH (08:57)
[2023-12-07] MEDS: PALIPERIDONE 3 MG TAB.ER.24 PO SCH (08:58)
[2023-12-07] MEDS: metoprolol succinate 25mg (24-HOUR) SR. Tablet PO SCH (08:58)
[2023-12-07] MEDS: furosemide 20MG tablet PO SCH (08:58)
[2023-12-07] MEDS: nicotine 21mg patch - 24 hr TD SCH (09:00)
[2023-12-07] MEDS ORDERED: FLU VACC TS2024-25(6MOS UP)/PF 45 MCG/0.5 ML SYRINGE IMVAC ONE (10:00)
[2023-12-07] MEDS ORDERED: pneumococcal 23-VAL P-sac vacc 25 mcg/0.5ml vial IMVAC ONE (10:00)
[2023-12-07] MEDS: isosorbide mononitrate 30mg tab.SR.24H PO SCH (20:14)
[2023-12-07] MEDS: apixaban 5mg tablet PO SCH (20:14)
[2023-12-07] MEDS: Melatonin 3mg tablet PO SCH (20:14)
[2023-12-07] MEDS: QUEtiapine 25mg tablet PO SCH (20:14)
[2023-12-08 02:00] VITALS: BP 91/45; PULSE 68; RESP 15; TEMP 97.6; O2SAT 96
[2023-12-08 02:30] VITALS: BP 93/48; PULSE 61
[2023-12-08 07:00] VITALS: BP 100/62; PULSE 60; RESP 16; TEMP 97.3; O2SAT 97
[2023-12-08 07:23] LABS: BASOPHILS % (AUTO) 0.5 % (0-1); EOSINOPHILS # (AUTO) 0.1 X10'3 (0-0.9); HEMATOCRIT 35.4 % (42.0-52.0); LYMPHOCYTES # (AUTO) 1.5 X10'3 (1.1-4.8); LYMPHOCYTES % (AUTO) 18.5 % (21-51); MEAN CORPUSCULAR HEMOGLOBIN 26.7 PG (27.0-31.0); MEAN CORPUSCULAR HGB CONC 31.2 g/dL (33.0-36.5); MEAN CORPUSCULAR VOLUME 85.6 FL (78-98); MEAN PLATELET VOLUME 8.8 FL (7.4-10.4); MONOCYTES # (AUTO) 0.7 X10'3 (0-0.9); MONOCYTES % (AUTO) 8.7 % (2-12); NEUTROPHILS # (AUTO) 5.8 X10'3 (1.8-7.7); NEUTROPHILS % (AUTO) 71.3 % (42-75); PLATELET COUNT 217 X10'3 (140-440); RED BLOOD COUNT 4.13 X10'6 (4.70-6.10); RED CELL DISTRIBUTION WIDTH 19.3 % (11.5-14.5); WHITE BLOOD COUNT 8.2 X10'3 (4.5-11.0)
[2023-12-08 07:59] LABS: ALANINE AMINOTRANSFERASE 30 U/L (12-78); ALBUMIN 3.1 G/DL (3.4-5.0); ALBUMIN/GLOBULIN RATIO 0.8 (1.1-1.5); ALKALINE PHOSPHATASE 54 IU/L (46-116); ANION GAP 11 (8-16); ASPARTATE AMINO TRANSFERASE 26 U/L (10-37); BILIRUBIN,TOTAL 0.7 MG/DL (0.1-1.0); BLOOD UREA NITROGEN 24 MG/DL (7-18); BUN/CREATININE RATIO 29.3 (10.0-20.0); CALCIUM 8.3 MG/DL (8.5-10.1); CHLORIDE 102 MMOL/L (99-107); CREATININE 0.82 MG/DL (0.60-1.10); GLUCOSE 110 MG/DL (70-104); MAGNESIUM 2.1 MG/DL (1.5-2.4); POTASSIUM 4.5 MMOL/L (3.5-5.1); SODIUM 135 MMOL/L (135-145); TOTAL CARBON DIOXIDE 22.2 MMOL/L (24-32); eCRCL 77 ML/MIN; eGFR > 90 ML/MIN
[2023-12-08 08:00] VITALS: RESP 16; O2SAT 96
[2023-12-08] MEDS: LORazepam 1 MG tablet PO PRN (09:09)
[2023-12-08] MEDS ORDERED: APIX5TAB3 PO (10:41)
[2023-12-08 11:00] VITALS: BP 88/48; PULSE 79; RESP 19; TEMP 97.8; O2SAT 97
== END 2023-12-08 17:24 | DRG 198 ==
LOC: PCU 3S 14:51 → UNDOADMIN 15:56 → PCU 3S 16:12
PROVIDERS: ADMIT Internal Medicine; ATTEND Internal Medicine
PROC: 3E0234Z Introduction of Serum, Toxoid and Vaccine into Muscle, Percutaneous Approach (ICD-10-PCS; principal; 2023-12-07)
DX: I25.110 Atherosclerotic heart disease of native coronary artery with unstable angina pectoris (principal); D50.9 Iron deficiency anemia, unspecified; J44.9 Chronic obstructive pulmonary disease, unspecified; Z79.899 Other long term (current) drug therapy; Z91.013 Allergy to seafood; Z79.82 Long term (current) use of aspirin; Z79.01 Long term (current) use of anticoagulants; Z23 Encounter for immunization
CPT/HCPCS: 36415; 80053; 80061; 83735; 84132; 84484; 85025; 85610; 85730; 87081; 93005; 94640; 94760; 99285; G0378; J1644; J2270; J7030